=== PATIENT | male | born 1940 | race Caucasian/White ===

== ENCOUNTER 2019-08-10 10:05 | Outpatient (CLI) | payer MEDICARE, SELFPAY ==
--- NOTE | 2019-08-13 12:51 | WPDHOLTEREM ---
Holter/Event Monitor Holter/Event Monitor Date of procedure: 08/10/19 Procedure Type: 48 hour holter monitor Indications: Lightheadedness Conclusion: 1. 48 hour holter monitor on 08/10/19. 2. Predominant rhythm is sinus rhythm. HR range 28-113 bpm; average HR 57 bpm. 3. There are 2,206 premature supraventricular complexes, 48 supraventricular couplets, 10 supraventricular bigeminy and 42 supraventricular trigeminy. There are 14 episodes of atrial flutter/tachycardia, fastest at 122 bpm and longest lasting 6 beats. 4. There are 66 premature ventricular complexes, 1 ventricular couplet. There is one ventricular tachycardia at 162 bpm lasting 6 beats. 5. Underlying first degree AV block. The longest pause is 2.6 seconds at 04:30. 6. No symptoms availabe for correlation.
== END 2019-08-10 10:06 | disposition home or self-care (01) ==
PROVIDERS: PCP Registered Nurse; Visit Provider Registered Nurse
DX: R42 Dizziness and giddiness (principal)
CPT/HCPCS: 93225; 93226

== ENCOUNTER 2020-04-24 09:56 | Inpatient (IN) | payer MEDICARE, SELFPAY ==
[2020-04-24] VITALS (9 sets, daily range): BP systolic 100–154; BP diastolic 72–95; PULSE 67–105; RESP 13–19; TEMP 36.1–36.5; O2SAT 95–98; BMI 26.6; BMI 27.1
--- NOTE | ~2020-04-24 | CT_ITS ---
EXAMINATION: CT brain wo con EXAM DATE: 04/24/2020 11:22 INDICATION: Multiple falls. TECHNIQUE: Spiral CT of the head was performed without contrast. Axial, coronal and sagittal images were reviewed. The dose-length product (DLP) for this examination was 681.00 mGy-cm. The exposure w as tailored according to patient size, and iterative reconstruction (ASIR) was used as additional dos e reduction technique. There is no prior study for comparison. FINDINGS: There is no acute intraparenchymal hemorrhage. No evidence of intraparenchymal brain mass lesion. There is hypodense 1 x 2 cm region in the left occipital lobe which is suspicious for an acut e infarction. There is moderate periventricular and subcortical hypodensity, nonspecific but probably related to small vessel ischemic disease. There is moderate prominence of the sulci and ventricles related to cerebral atrophy. There is intracranial carotid arteriosclerosis. There are no extra-a xial collections. There is no mass effect or midline shift. Patient has had bilateral ocular lens s urgery. Soft tissue is unremarkable. Mild to moderate maxillary and ethmoid mucoperiosteal thickeni ng. No sinus air-fluid levels. Evidence of remote right superior orbital rim and frontal fractures. M astoid air cells are well aerated. IMPRESSION: 1. Left occipital lobe infarction, could be acute. 2. Chronic age related findings. Reviewed, dictated and finalized at location B. ACY ATTORNEY
--- NOTE | ~2020-04-24 | US_ITS ---
EXAMINATION: US carotid duplex BI DATE: 04/24/2020 17:12 INDICATION: Left occipital lobe infarct. TECHNIQUE: Grayscale, color Doppler, and pulsed Doppler images of the cervical carotid arteries were obtained. The degree of vessel stenosis is placed in one of the following categories: normal, <50%, 5 0-69%, >=70% but less than near-occlusion, near-occlusion, or total occlusion. Note that percent sten osis relative to normal distal artery lumen diameter is indirectly measured from velocity measurement s as described by Jack, et al. Radiology 2003; 229:[id number]. COMPARISON: None. FINDINGS: RIGHT: The right common carotid artery (CCA) peak systolic velocity (PSV) is 42 cm/s. The right internal car otid artery (ICA) PSV is 63 cm/s. The right ICA end-diastolic velocity (EDV) is 16 cm/s. The right IC A/CCA PSV ratio is 1.2. Grayscale and color Doppler images yield an estimate of <50% diameter reducti on from plaque in the ICA. There is antegrade flow in the right vertebral artery. LEFT: The left CCA PSV is 38 cm/s. The left ICA PSV is 54 cm/s. The left ICA EDV is 12 cm/s. The left ICA/C CA PSV ratio is 1.5. Grayscale and color Doppler images yield an estimate of <50% diameter reduction from plaque in the ICA. There is antegrade flow in the left vertebral artery. IMPRESSION: 1. <50% stenosis in the right internal carotid artery. 2. <50% stenosis in the left internal carotid artery. Reviewed, dictated and finalized at location A. LEGAL
--- NOTE | ~2020-04-24 | XR_ITS ---
EXAMINATION: XR chest 1V portable EXAM DATE: 04/24/2020 11:51 INDICATION: Shortness of breath. Stroke. TECHNIQUE: Portable AP frontal chest x-ray was obtained. Comparison is made to prior examination from 09/20/2018. FINDINGS: Interval placement of dual lead pacemaker/AICD device. There are calcified pleural plaques. No definite superimposed acute airspace disease. Cardiomediastinal silhouette is normal. There is no pneumothorax suspected. There are no pleural effusions. There are bony degenerative changes. Left sh oulder rotator cuff repair anchors. IMPRESSION: 1. 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 2. No definite superimposed acute findings. Reviewed, dictated and finalized at location B. TRIMMER
[2020-04-24 11:53] LABS: Basophils Percent Auto 0.3 % (0.2-1.2); Eosinophils Absolute Auto 0.5 K/mm3 (0-0.3); Eosinophils Percent Auto 7.5 % (0-4.4); Hematocrit 42.7 % (42.0-52.0); Hemoglobin 14.4 g/dL (14.0-18.0); Immature Granulocyte Absolute 0.01 K/mm3 (0.00-0.031); Immature Granulocyte Percent A 0.2 % (0-0.5); Lymphocytes Absolute Auto 1.33 K/mm3 (0.9-3.2); Lymphocytes Percent Auto 20.4 % (18.3-44.2); Mean Corpuscular HGB Conc 33.7 g/dl (32-36); Mean Corpuscular Hemoglobin 29.9 pg (26-34); Mean Corpuscular Volume 88.6 fl (80-100); Mean Platelet Volume 9.6 fl (7.4-10.4); Monocytes Absolute Auto 0.5 K/mm3 (0.1-0.6); Neutrophils Absolute Auto 4.2 K/mm3 (1.3-6.7); Neutrophils Percent Auto 63.6 % (45.5-73.1); Platelet Count Result 266 k/mm3 (150-375); Red Blood Count 4.82 M/mm3 (4.6-6.20); Red Cell Distribution Width 14.6 % (11.5-14.5); White Blood Count 6.5 K/mm3 (4.5-10.0)
[2020-04-24 12:03] LABS: INR 2.1; Prothrombin Time 23.8 Seconds (11.1-14.7)
[2020-04-24 12:04] LABS: Partial Thromboplastin Time 37.8 SECONDS (22.3-36.8)
[2020-04-24 12:17] LABS: Anion Gap 4 mmol/L (8-16); Blood Urea Nitrogen 14 mg/dL (9-20); Calcium 8.9 mg/dL (8.4-10.2); Carbon Dioxide 28 mmol/L (22-30); Chloride 106 mmol/L (98-107); Estimated CRCL calculation 56 ml/min; Estimated Glomerular Filt Rate > 60; Glucose 94 mg/dL (75-110); Potassium 4.1 mmol/L (3.4-5.0); Sodium 138 mmol/L (137-145)
[2020-04-24 12:27] LABS: Add Urine Microscopic? NO; Appearance Urine Clear (Clear); Bilirubin Urine Negative (Negative); Blood Urine Negative (Negative); Color Urine Straw (Yellow); Glucose Urine UA Negative (Negative); Ketones Urine Negative (Negative); Leukocyte Esterase Ur Negative LEU/UL (Negative); Nitrate Urine Negative (Negative); Protein Urine Negative (Negative); Specific Grav Ur 1.012 (1.001-1.035); Urobilinogen Urine Negative mg/dL (<2.0)
--- NOTE | 2020-04-24 12:28 | ED.GENADULT ---
HPI - General Adult General Chief complaint: Fall Stated complaint: Falls, SOB Time Seen by Provider: 04/24/20 11:15 History of Present Illness HPI narrative: Patient is a 79-year-old male who presents to the ER with concerns of head injury. Patient has had increasing number of falls over the last couple months since having Covid. Patient is anticoagulated with Coumadin. He has dementia and Parkinson's as well. is currently attempting to have him placed a [place]. Yesterday morning patient had blood running down the front of his face and his chest. No discernible injury could be visualized. Patient then was more sleepy throughout the day and less responsive. Home health nurse recommended he come in for evaluation today. Related Data Home Medications Medication Instructions Recorded Confirmed memantine 10 mg tablet 10 mg PO BID 03/12/19 sertraline 25 mg tablet 25 mg PO DAILY 03/12/19 Allergies Allergy/AdvReac Type Severity Reaction Status Date / Time morphine Allergy Mild unknown Verified 04/24/20 12:47 Review of Systems Review of Systems: ROS unobtainable: Yes unobtainable due to mental status (Dementia) [facility] Past Medical History Medical History (Updated 04/24/20 @ 14:07 by Nabeel Sommers MD) Accelerated hypertension Alcohol abuse Alzheimer's dementia without behavioral disturbance Chest pain Chronic insomnia Coronary atherosclerosis Dementia Lumbar spondylosis MDD (major depressive disorder), recurrent episode, moderate Parkinsonian syndrome Restless legs syndrome Surgical History Surgical History (Updated 03/14/19 @ 19:42 by Jamee Cyr MD) History of back surgery History of cataract surgery Hx of cardiac catheterization Family History Family History (Updated 05/21/18 @ 14:42 by DOCTOR UNKNOWN) Sibling Family history of tuberculosis Family history of hepatitis Patient's brother is Carcinoma of colon Patient's sister is Mother Cerebrovascular accident, Onset Age: 82 Family history of dementia Patient's mother is , Onset Age: 82 Father Family history of malignant neoplasm of brain, Onset Age: 62 Patient's father is , Onset Age: 62 Social History Social History (Updated 04/02/19 @ 13:34 by Jessica James) Social History: Smoking status: Never smoker Second hand tobacco smoke exposure: No Alcohol intake: current Drinks per week: 4 Substance use: never Substance use type: does not use Gender identity (if verbalized by the patient): Male Exam Narrative: Exam Narrative: GENERAL: Well-appearing, well-nourished, and in no acute distress. HEAD: Normocephalic, atraumatic. CHEST: Clear to auscultation. No respiratory distress. HEART: Irregular regular rate and rhythm.. Normal peripheral pulses. ABDOMEN: Soft, nontender, nondistended. EXTREMITIES: Normal range of motion. 1+ edema. SKIN: Warm, dry, no rash. NEURO: Cranial nerves II through XII intact. No upper or lower extremity drift. Alert and oriented x2. PSYCH: Normal mood and affect. Course Course Emergency Course: Informed patient/family of results. Admit to hospitalist service. Vital Signs Vital signs: Vital Signs Temperature 97.7 F 04/24/20 10:00 Pulse Rate 104 H 04/24/20 10:00 Respiratory Rate 18 04/24/20 10:00 Blood Pressure 100/74 04/24/20 10:00 Pulse Oximetry 95 04/24/20 10:00 Temperature 97.7 F 04/24/20 10:00 Pulse Rate 69 04/24/20 13:58 Respiratory Rate 13 04/24/20 13:58 Blood Pressure 106/77 04/24/20 13:58 Pulse Oximetry 98 04/24/20 13:58 Medical Decision Making Vital Signs Vital Signs: Vital Signs Temperature 97.7 F 04/24/20 10:00 Pulse Rate 104 H 04/24/20 10:00 Respiratory Rate 18 04/24/20 10:00 Blood Pressure 100/74 04/24/20 10:00 Pulse Oximetry 95 04/24/20 10:00 Temperature 97.7 F 04/24/20 10:00 Pulse
[2020-04-24 12:29] LABS: Troponin I 0.017 ng/mL (0.000-0.034)
[2020-04-24] MEDS: LORazepam INJ (*CRX) 2 MG/ML VIAL 0.5 MG IV PUSH (12:55)
--- NOTE | 2020-04-24 13:02 | PC.NURSE ---
lunch tray ordered for pt as this time
--- NOTE | 2020-04-24 14:15 | ADMGEN ---
This patient, Pierce Gonzalez, was admitted to Medical Room 343-01. Patient/family oriented to hospital policies and general routines including ID bracelet, bed and alarms, visiting hours, pain management, procedures, bathroom and other care routines, personal items, smoking policy, room service/diet, and visiting hours. Information on how to activate the Rapid Response Team has been discussed. Patient/Family are encouraged to report perceived risks to care and to ask questions if they do not understand what they are told or what they should do.
--- NOTE | 2020-04-24 20:00 | PM.IMHP ---
H&P: HPI History of Present Illness Date/Time: 04/24/20 20:00 Chief Complaint: Multiple falls. Narrative: This is a 79-year-old male with dementia, parkinsonian syndrome, coronary artery disease, hypertension, and several other comorbidities who presented to the emergency department earlier today from home for evaluation after multiple falls. Due to his dementia he is not able to provide an accurate history and as such all of the following is obtained via a review of his electronic medical records and reports from his . His has been struggling at home due to the patient's dementia. It is my understanding and he has of wandering in the middle of the night, urinates wherever he wants to in the home, and is at times irritable. She has been trying to get him placed at [facility] but has been unsuccessful as of this time. Home health was there to visit today and they felt it would be best for the patient to come in for evaluation after he apparently fell this morning although there was no mention of injury. At the time my evaluation the patient is sitting up in the bed and is confused, thinking he is in line for something at work, but he is easily reoriented. He is not aware that he is in the hospital and cannot tell me under what circumstances he thought he may be here in the hospital. He has no current complaints aside from the fact that he wants to get out of bed. Review of Systems Review of Systems: Narrative: Twelve systems were reviewed. Given his significant dementia he is not a very reliable historian. At this time he does specifically deny headache, vertigo, auditory and visual changes, focal weakness, paresthesias, chest pain, shortness of breath, nausea, vomiting, diarrhea, and dysuria. Except as documented, all other systems were reviewed and are negative. [facility] Past Medical History Medical History (Updated 04/25/20 @ 00:08 by Concetta Foote PA-C) Accelerated hypertension Alcohol abuse Previous history of such. Alzheimer's dementia without behavioral disturbance Benign prostatic hyperplasia Chest pain Chronic insomnia Coronary atherosclerosis Current use of longterm anticoagulation Dementia Essential hypertension Lumbar spondylosis MDD (major depressive disorder), recurrent episode, moderate Obstructive sleep apnea Does not use CPAP. Parkinsonian syndrome Paroxysmal atrial fibrillation Restless legs syndrome Spinal stenosis Surgical History Surgical History (Updated 04/25/20 @ 00:08 by Concetta Foote PA-C) History of bilateral cataract extraction History of cardiac pacemaker History of cataract surgery History of laparoscopic cholecystectomy History of lumbar fusion History of repair of rotator cuff Bilateral. History of total right knee replacement History of transurethral resection of prostate History of umbilical hernia repair Hx of cardiac catheterization Family History Family History Sibling Family history of tuberculosis Family history of hepatitis Patient's brother is Carcinoma of colon Patient's sister is Mother Cerebrovascular accident, Onset Age: 82 Family history of dementia Patient's mother is , Onset Age: 82 Father Family history of malignant neoplasm of brain, Onset Age: 62 Patient's father is , Onset Age: 62 Social History Social History (Updated 04/25/20 @ 00:03 by Concetta Foote PA-C) Social History: Surrogate decision maker: Dora Gonzalez, . Code status: Full code. Smoking status: Never smoker Second hand tobacco smoke exposure: No Alcohol intake: former Substance use: never Substance use type: does not use Additional living arrangements comments: Resides in [place] with his . 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 Gender identity (if verbalized by the
[2020-04-25] VITALS (7 sets, daily range): BP systolic 111–169; BP diastolic 87–98; PULSE 78–112; RESP 16–18; TEMP 35.7–36.7; O2SAT 95–97
[2020-04-25] MEDS: traZODone HCL 50 MG TABLET 100 MG PO ×2 (01:28→21:21)
[2020-04-25] MEDS: rOPINIRole HCL 1 MG TABLET 2 MG PO ×4 (01:28→17:23)
--- NOTE | 2020-04-25 03:49 | PC.NURSE ---
PT pulled out his IV, Concetta Foote notified about PTs current behavior and staff unable to place new IV. She okayed IV staying out.
[2020-04-25 06:06] LABS: INR 1.4; Prothrombin Time 18.1 Seconds (11.1-14.7)
[2020-04-25] MEDS: dilTIAZem HCL CD 180 MG CAP.ER.24H PO (10:42)
[2020-04-25] MEDS: DOXAZOSIN MESYLATE 4 MG TABLET PO (10:42)
[2020-04-25] MEDS: hydroCHLOROthiazide 12.5 MG CAPSULE PO (10:43)
[2020-04-25] MEDS: SERTRALINE HCL 25 MG TABLET PO (10:43)
[2020-04-25] MEDS: MELOXICAM 7.5 MG TABLET PO (10:43)
--- NOTE | 2020-04-25 14:02 | PC.NURSE ---
Reviewed documentation for student nurse Clyde Barragan Today [phone]
--- NOTE | 2020-04-25 15:30 | PM.IMPN ---
Progress Note: A&P Assessment and Plan (1) Multiple falls: Code(s): R29.6 - Repeated falls Status: Acute Assessment and Plan: Secondary to parkinsonism progression, CVA could also be contributing. PT/OT, dispo is SNF. Awaiting COVID testing for discharge. (2) Cerebrovascular accident: Code(s): I63.9 - Cerebral infarction, unspecified Status: Acute Assessment and Plan: Chronic vs. acute, unclear based on imaging. CT brain shows left occipital lobe infarction. Do not feel patient would tolerate or benefit from MRI brain today. agrees. (3) Paroxysmal atrial fibrillation: Code(s): I48.0 - Paroxysmal atrial fibrillation Status: Chronic Assessment and Plan: Rate controlled on home diltiazem. (4) Current use of superintendent terminal anticoagulation: Code(s): Z79.01 - long term care administrator (current) use of anticoagulants Status: Chronic Assessment and Plan: Home warfarin stopped due to falls and bleeding risk. is agreeable to this and mentioned this was going to be discussed with patient's boom operator soon. (5) Dementia: Code(s): F03.90 - Unspecified dementia without behavioral disturbance Status: Chronic Assessment and Plan: Patient with history of Lewy Body dementia with parkinsonism follows with Dr Alexey Russ. With behavioral disturbance, becoming agitated today. Will attempt trial of seroquel this evening. According to Dr Haddad's most recent note from last month, appears he had plans to try Seroquel soon. Monitor. (6) Essential hypertension: Code(s): I10 - Essential (primary) hypertension Status: Chronic Assessment and Plan: BP a bit elevated may be related to agitation. Maintained on his home antihypertensive regimen. Monitor BP and adjust treatment as needed. (7) Parkinsonian syndrome: Code(s): G20 - Parkinson's disease Status: Chronic Assessment and Plan: Worsening. notes his movement disorder becoming progressively worse since he had COVID early February 2020. See above. Followed by Dr Alexey Haddad in [facility]. (8) Benign prostatic hyperplasia: Code(s): N40.0 - Benign prostatic hyperplasia without lower urinary tract symptoms Status: Chronic Assessment and Plan: No acute issues. Subjective Date/time seen: 04/25/20 1400 Interval history: Mr. Gonzalez is a 79yo M with dementia who presents with worsening confusion and multiple falls at home. His has been having increasing difficulty caring for him at home and has been working on trying to get him placed in a care facility. He is resting comfortably at this time after having been agitated much of this morning. Review of systems not obtained however at the bedside describes he sometimes complains of chronic back pain, otherwise no complaints today. Review of Systems Review of Systems: ROS unobtainable: Yes unobtainable due to mental status Exam Narrative: Exam Narrative: General: Well-developed male resting supine in bed in no acute distress. Resting comfortably, then attempts to get out of bed a couple times, then goes back to resting comfortably. HEENT: Normocephalic, EOMI, oral mucosa tacky. Cardiovascular: Rate and rhythm are regular. Respiratory: Lungs clear to auscultation bilaterally. Respirations even and non-labored. Abdomen: Soft, non-tender, non-distended, bowel sounds present. Extremities: Peripheral pulses intact. No edema. Neuro: He is confused and disoriented due to dementia. Oriented only to self. Not able to follow simple commands at this time. Objectiv
[2020-04-25] MEDS: QUEtiapine FUMARATE 25 MG TABLET PO (17:23)
[2020-04-26 05:30] VITALS: BP 146/88; PULSE 55; RESP 16; TEMP 36.6; O2SAT 96
[2020-04-26] MEDS: MELOXICAM 7.5 MG TABLET PO (08:33)
[2020-04-26] MEDS: SERTRALINE HCL 25 MG TABLET PO (08:33)
[2020-04-26] MEDS: dilTIAZem HCL CD 180 MG CAP.ER.24H PO (08:33)
[2020-04-26] MEDS: rOPINIRole HCL 1 MG TABLET 2 MG PO ×3 (08:33→17:46)
[2020-04-26] MEDS: DOXAZOSIN MESYLATE 4 MG TABLET PO (08:33)
[2020-04-26] MEDS: hydroCHLOROthiazide 12.5 MG CAPSULE PO (08:33)
--- NOTE | 2020-04-26 09:19 | PM.IMPN ---
Progress Note: A&P Assessment and Plan (1) Multiple falls: Code(s): R29.6 - Repeated falls Status: Acute Assessment and Plan: Suspect secondary to parkinsonism progression, CVA could also be contributing. PT/OT, dispo is SNF. Awaiting COVID testing for discharge. 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 Chronic vs. acute, unclear based on imaging. Discussed with patient's that it is not felt the patient would tolerate or benefit from MRI brain; agrees. (3) Paroxysmal atrial fibrillation: Code(s): I48.0 - Paroxysmal atrial fibrillation Status: Chronic Assessment and Plan: Rate controlled on home diltiazem. (4) Current use of long term care administrator anticoagulation: Code(s): Z79.01 - buttermaker continuous churn (current) use of anticoagulants Status: Chronic Assessment and Plan: Home warfarin stopped due to falls and bleeding risk. is agreeable to this and mentioned this was going to be discussed with patient's straight truck driver at next appointment. (5) Dementia: Code(s): F03.90 - Unspecified dementia without behavioral disturbance Status: Chronic Assessment and Plan: Patient with history of Lewy Body dementia with parkinsonism follows with Dr Alexey Haddad at [facility]. With behavioral disturbance, becoming agitated yesterday. It seems he has done well overnight after his first dose of Seroquel. According to Dr Haddad's most recent note from last month, appears he had plans to try Seroquel soon. Monitor. (6) Essential hypertension: Code(s): I10 - Essential (primary) hypertension Status: Chronic Assessment and Plan: BPs variable, last 146/88. Maintained on his home antihypertensive regimen. Monitor BP and adjust treatment as needed. (7) Parkinsonian syndrome: Code(s): G20 - Parkinson's disease Status: Chronic Assessment and Plan: Worsening. notes his movement disorder becoming progressively worse since he had COVID early February 2020. See above. Followed by Dr Alexey Haddad in [facility]. (8) Benign prostatic hyperplasia: Code(s): N40.0 - Benign prostatic hyperplasia without lower urinary tract symptoms Status: Chronic Assessment and Plan: No acute issues. Subjective Date/time seen: 04/26/20 09:15 Interval history: Mr. Gonzalez is a 79yo M with dementia who presents with worsening confusion and multiple falls at home. His has been having increasing difficulty caring for him at home and has been working on trying to get him placed in a care facility. He is awake and resting comfortably at this time. He reports pain to his butt/lower back which is chronic for him but otherwise offers no complaints. He denies chest pain, shortness of breath, nausea or vomiting. He tells me he ate some breakfast but I will check with nursing. Review of Systems Review of Systems: Narrative: Twelve systems were reviewed with pertinent positives and negatives as per HPI. Except as documented, all other systems were reviewed and are negative. Exam Narrative: Exam Narrative: General: Well-developed male resting supine in bed in no acute distress. He is calm and resting comfortably. HEENT: Normocephalic, EOMI, oral mucosa moist. Cardiovascular: Rate is normal, rhythm irregular. Respiratory: Lungs clear to auscultation bilaterally. Respirations even and non-labored. Abdomen: Soft, non-tender, non-distended, bowel sounds present. Extremities: Peripheral p
[2020-04-26 10:17] VITALS: O2SAT 95
[2020-04-26] MEDS: QUEtiapine FUMARATE 25 MG TABLET PO (13:41)
--- NOTE | 2020-04-26 13:47 | PC.NURSE ---
Patient has continued to become violent with staff and who is in the room. I made a phone call to MONICA Lebron to discuss options that would help him calm down. Vi stated to give him his seroquel early today. Will need to consider something prn for this patient as he continues to become violent and physical with staff. Patient refuses to stay in bed and can easily climb over bed railings. It is becoming a safety issue for us and the patient as well.
--- NOTE | 2020-04-26 13:57 | PCPTNOTE ---
The PT treatment was unable to be completed today due to patient refusal. RN reports patient has been more aggressive today. Will continue per Plan of Care frequency and duration.
[2020-04-26 14:00] VITALS: BP 119/68; PULSE 73; RESP 16; TEMP 36.3; O2SAT 100
--- NOTE | 2020-04-26 14:27 | PC.NURSE ---
Multiple attempts to educate patient on importance of staying in bed and cooperating with staff so we can keep her safe. Patient unable to comprehend and continues to become violent and uncooperative.
[2020-04-26 19:42] VITALS: BP 122/82; PULSE 92; RESP 18; TEMP 36.6; O2SAT 94
[2020-04-26] MEDS: traZODone HCL 50 MG TABLET 100 MG PO (20:25)
[2020-04-26 20:42] LABS: SARS-CoV-2 RNA PCR Negative
[2020-04-27 04:16] VITALS: BP 108/56; PULSE 91; RESP 16; TEMP 36.3; O2SAT 99
[2020-04-27] MEDS: MELOXICAM 7.5 MG TABLET PO (07:54)
[2020-04-27] MEDS: hydroCHLOROthiazide 12.5 MG CAPSULE PO (07:54)
[2020-04-27] MEDS: rOPINIRole HCL 1 MG TABLET 2 MG PO ×2 (07:55→13:49)
[2020-04-27] MEDS: DOXAZOSIN MESYLATE 4 MG TABLET PO (07:55)
[2020-04-27] MEDS: dilTIAZem HCL CD 180 MG CAP.ER.24H PO (07:55)
[2020-04-27] MEDS: SERTRALINE HCL 25 MG TABLET PO (07:55)
[2020-04-27 08:00] VITALS: PULSE 91; RESP 16; O2SAT 99
[2020-04-27] MEDS: LORazepam (*CRX) 0.5 MG TABLET PO (11:05)
--- NOTE | 2020-04-27 13:07 | PM.DS ---
DS: Admitting Diagnosis Admitting Diagnosis Admitting Diagnosis: Falls DS: Discharge Diagnosis Discharge Diagnosis (1) Multiple falls: Code(s): R29.6 - Repeated falls Status: Acute Assessment and Plan: Date of Admission 04/24/20 Date of Discharge/DOS 04/27/20 Mr. Gonzalez is a 79yo M with progressive Forrest Body dementia, paroxysmal atrial fibrillation on long-term anticoagulation with warfarin, hypertension and BPH who presented to the ED for evaluation of multiple falls. His has had increased difficulty caring for Hardik at home and has been attempting to get him into a care facility due to multiple falls and increasing confusion at home. CT brain demonstrated a left occipital lobe infarction, unclear if subacute vs. acute. Due to patient's confusion and agitation it was felt he would not tolerate MRI at this time. Patient's agrees to no MRI. His long-term anticoagulation with warfarin was discontinued due to several falls. He [place] with Dr [place] his dementia and Parkinsonism. Due to agitation he was started on Seroquel, I have notified Dr Haddad's office of same. Case management arranged placement at SNF for Hardik and he was hemodynamically stable for discharge to SNF 04/27/20. Suspect secondary to parkinsonism progression, CVA could also be contributing. PT/OT, dispo is SNF. 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 Chronic vs. acute, unclear based on imaging. Discussed with patient's that it is not felt the patient would tolerate or benefit from MRI brain at this time; agrees. (3) Paroxysmal atrial fibrillation: Code(s): I48.0 - Paroxysmal atrial fibrillation Status: Chronic Assessment and Plan: Rate controlled on home diltiazem. (4) Current use of usp anticoagulation: Code(s): Z79.01 - FPC (current) use of anticoagulants Status: Chronic Assessment and Plan: Home warfarin stopped due to falls and bleeding risk. is agreeable to this and mentioned this was going to be discussed with patient's garden equipment mechanic at next appointment. (5) Dementia: Code(s): F03.90 - Unspecified dementia without behavioral disturbance Status: Chronic Assessment and Plan: Patient with history of Lewy Body dementia with parkinsonism follows with Dr Alexey Haddad at [facility]. With behavioral disturbance, becoming agitated. It seems he has done well overnight after his first dose of Seroquel. According to Dr Haddad's most recent note from last month, appears he had plans to try Seroquel soon. Monitor. (6) Essential hypertension: Code(s): I10 - Essential (primary) hypertension Status: Chronic Assessment and Plan: BPs variable on his home antihypertensive regimen. (7) Parkinsonian syndrome: Code(s): G20 - Parkinson's disease Status: Chronic Assessment and Plan: Worsening. notes his movement disorder becoming progressively worse since he had COVID early February 2020. See above. Followed by Dr Alexey Haddad in [facility]. (8) Benign prostatic hyperplasia: Code(s): N40.0 - Benign prostatic hyperplasia without lower urinary tract symptoms Status: Chronic Assessment and Plan: No acute issues. DS: Summary Hospital Course Hospital Course: See above. Time Spent with Patient Time attestation: Total time spent providing and/or coordinating discharge services: 40 minutes Ex
[2020-04-27 14:29] VITALS: BP 104/62; PULSE 82; RESP 16; TEMP 35.9; O2SAT 98
[2020-04-27] MEDS: QUEtiapine FUMARATE 25 MG TABLET PO (15:56)
[2020-04-27] MEDS: ACETAMINOPHEN 325 MG TABLET 650 MG PO (16:14)
== END 2020-04-27 16:45 | DRG 65 ==
LOC: ANHED 11:15 → ANH3MED 14:07
PROVIDERS: Physician Assistant; Admitting Provider Internal Medicine; Emergency Provider Emergency Medicine; PCP Registered Nurse; Visit Provider Physician Assistant
DX: I63.9 Cerebral infarction, unspecified (principal); F02.81 Dementia in other diseases classified elsewhere, unspecified severity, with behavioral disturbance; G30.9 Alzheimer's disease, unspecified; G20 Parkinson's disease; R29.6 Repeated falls; Z20.822 Contact with and (suspected) exposure to COVID-19; I25.10 Atherosclerotic heart disease of native coronary artery without angina pectoris; I48.0 Paroxysmal atrial fibrillation; I10 Essential (primary) hypertension; G47.33 Obstructive sleep apnea (adult) (pediatric); N40.0 Benign prostatic hyperplasia without lower urinary tract symptoms; Z79.899 Other long term (current) drug therapy; Z86.16 Personal history of COVID-19; Z95.0 Presence of cardiac pacemaker; Z98.42 Cataract extraction status, left eye; Z98.41 Cataract extraction status, right eye
CPT/HCPCS: 36415; 70450; 71045; 80048; 81003; 84484; 85025; 85610; 85730; 93880; 96374; 97110; 97161; 97166; 99285; A9270; C9803; J2060; U0003; U0005

== ENCOUNTER 2020-05-08 15:41 | Emergency (ER) | payer MEDICARE, SELFPAY ==
[2020-05-08 15:45] VITALS: BP 108/58; PULSE 79; RESP 18; TEMP 36.6; O2SAT 99
--- NOTE | 2020-05-08 15:45 | ECG_ITS ---
Measurements Intervals Dewitt Rate: 71 P: 49 SC: 209 QRS: 175 QRSD: 90 T: 169 QT: 429 QTc: 466 Interpretive Statements ELECTRONIC ATRIAL PACEMAKER WITH INHIBITION LIMB LEAD REVERSAL FREQUENT ATRIAL PREMATURE COMPLEXES BASELINE ARTIFACT- I, II, III, AVR, AVL, AVF ABNORMAL ECG Electronically Signed On 05-09-2020 7:29:10 TOWN MANAGER by Sudhakar Coles D.O.
--- NOTE | 2020-05-08 15:46 | ED.GENADULT ---
HPI - General Adult General Chief complaint: Psychiatric Symptoms <Xena Doshi MD - Last Filed: 05/09/20 07:15> Stated complaint: VIOLENT OUTBURSTS <Xena Doshi MD - Last Filed: 05/09/20 07:15> Time Seen by Provider: 05/08/20 19:56 <Xena Doshi MD - Last Filed: 05/09/20 07:15> Source: patient <Xena Doshi MD - Last Filed: 05/09/20 07:15> History of Present Illness HPI narrative: Patient is a 79 y/o male sent from [place] for violent outbursts. Patient states that he feel fine. He has no complaints. He does not know why he is here. He is poor historian. <Xena Doshi MD - Last Filed: 05/09/20 07:15> Related Data Home medications: Home Medications Medication Instructions Recorded Confirmed sertraline 25 mg tablet 25 mg PO DAILY 03/12/19 04/24/20 hydrochlorothiazide 12.5 mg PO DAILY 04/24/20 04/24/20 trazodone 100 mg PO .QHS 04/24/20 04/24/20 <Xena Doshi MD - Last Filed: 05/09/20 07:15> Allergies/adverse reactions: Allergies Allergy/AdvReac Type Severity Reaction Status Date / Time morphine Allergy Mild unknown Verified 04/24/20 15:17 <Xena Doshi MD - Last Filed: 05/09/20 07:15> Review of Systems Review of Systems: ROS unobtainable: Yes unobtainable due to mental status <Xena Doshi MD - Last Filed: 05/09/20 07:15> [facility] Past Medical History Medical History: Medical History Accelerated hypertension Alcohol abuse Previous history of such. Alzheimer's dementia without behavioral disturbance Benign prostatic hyperplasia Chest pain Chronic insomnia Coronary atherosclerosis Current use of fdc anticoagulation Dementia Essential hypertension Lumbar spondylosis MDD (major depressive disorder), recurrent episode, moderate Obstructive sleep apnea Does not use CPAP. Parkinsonian syndrome Paroxysmal atrial fibrillation Restless legs syndrome Spinal stenosis <Xena Doshi MD - Last Filed: 05/09/20 07:15> Surgical History Surgical History: Surgical History History of bilateral cataract extraction History of cardiac pacemaker History of cataract surgery History of laparoscopic cholecystectomy History of lumbar fusion History of repair of rotator cuff Bilateral. History of total right knee replacement History of transurethral resection of prostate History of umbilical hernia repair Hx of cardiac catheterization <Xena Doshi MD - Last Filed: 05/09/20 07:15> Family History Family History: Family History Sibling Family history of tuberculosis Family history of hepatitis Patient's brother is Carcinoma of colon Patient's sister is Mother Cerebrovascular accident, Onset Age: 82 Family history of dementia Patient's mother is , Onset Age: 82 Father Family history of malignant neoplasm of brain, Onset Age: 62 Patient's father is , Onset Age: 62 <Xena Doshi MD - Last Filed: 05/09/20 07:15> Social History Social History: Social History Social History: Surrogate decision maker: Dora Gonzalez, . Code status: Full code. Smoking status: Never smoker Second hand tobacco smoke exposure: No Alcohol intake: former Substance use: never Substance use type: does not use Additional living arrangements comments: Resides in [place] with his . 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 Gender identity (if verbalized by the patient): Male Spiritual care concerns: No <Xena Doshi MD - Last Filed: 05/09/20 07:15> Exam Const: General: no acute distress and well developed <Xena Doshi MD - Last Filed: 05/09/20 07:15> Orientation/consciousness: oriented to person <L
[2020-05-08 16:43] LABS: Basophils Percent Auto 0.4 % (0.2-1.2); Eosinophils Absolute Auto 0.3 K/mm3 (0-0.3); Eosinophils Percent Auto 4.6 % (0-4.4); Hematocrit 42.7 % (42.0-52.0); Hemoglobin 14.4 g/dL (14.0-18.0); Immature Granulocyte Absolute 0.02 K/mm3 (0.00-0.031); Immature Granulocyte Percent A 0.3 % (0-0.5); Lymphocytes Absolute Auto 1.71 K/mm3 (0.9-3.2); Lymphocytes Percent Auto 25.5 % (18.3-44.2); Mean Corpuscular HGB Conc 33.7 g/dl (32-36); Mean Corpuscular Hemoglobin 30.3 pg (26-34); Mean Corpuscular Volume 89.7 fl (80-100); Mean Platelet Volume 10.2 fl (7.4-10.4); Monocytes Absolute Auto 0.5 K/mm3 (0.1-0.6); Neutrophils Absolute Auto 4.2 K/mm3 (1.3-6.7); Neutrophils Percent Auto 62.2 % (45.5-73.1); Platelet Count Result 311 k/mm3 (150-375); Red Blood Count 4.76 M/mm3 (4.6-6.20); Red Cell Distribution Width 14.3 % (11.5-14.5); White Blood Count 6.7 K/mm3 (4.5-10.0)
[2020-05-08 16:46] LABS: Add Urine Microscopic? NO; Appearance Urine Clear (Clear); Bilirubin Urine Negative (Negative); Blood Urine Negative (Negative); Color Urine Yellow (Yellow); Glucose Urine UA Negative (Negative); Ketones Urine Negative (Negative); Leukocyte Esterase Ur Negative LEU/UL (Negative); Nitrate Urine Negative (Negative); Protein Urine Negative (Negative); Specific Grav Ur 1.023 (1.001-1.035); Urobilinogen Urine Negative mg/dL (<2.0)
[2020-05-08 16:57] LABS: Alanine Aminotransferase 40 U/L (4-50); Albumin Level 4.3 g/dL (3.5-5.1); Alkaline Phosphatase 69 U/L (38-126); Anion Gap 6 mmol/L (8-16); Aspartate Amino Transferase 44 U/L (17-59); Bilirubin,Total 1.8 mg/dL (0.2-1.3); Blood Urea Nitrogen 17 mg/dL (9-20); Calcium 9.5 mg/dL (8.4-10.2); Carbon Dioxide 33 mmol/L (22-30); Chloride 103 mmol/L (98-107); Estimated Glomerular Filt Rate > 60; Glucose 85 mg/dL (75-110); Potassium 3.5 mmol/L (3.4-5.0); Sodium 142 mmol/L (137-145)
--- NOTE | 2020-05-08 18:40 | PC.NURSE ---
spoke with patients on phone,she states that she does not want patient returned to [facility] without doing anything for him states patient was seen at [facility] yesterday and was sent back and patient acted out again. states that patient was previously treated [facility] and she would like him sent there
--- NOTE | 2020-05-08 20:50 | PC.NURSE ---
called [facility] to request transport. ETA [id number]
--- NOTE | 2020-05-08 20:52 | PC.NURSE ---
Called [facility] to request transport. Declined- no trucks available. Informed and aware that [facility] and [facility] do not have trucks available tonight.
--- NOTE | 2020-05-09 00:03 | PC.NURSE ---
Patient frequently getting out of bed and ambulating into ED hallway. Patient struggling to be redirected. EDP Tangela aware. Per EDP Tangela via verbal order read-back, give 5mg Haldol IM.
--- NOTE | 2020-05-09 00:46 | PC.NURSE ---
called [facility] for ETA update. ETA [id number]
--- NOTE | 2020-05-09 00:48 | PC.NURSE ---
called [facility] to request transport. [facility] Accepted and ETA is drive time from [facility].
[2020-05-09] MEDS: HALOPERIDOL LACTATE 5 MG/ML VIAL IM (00:50)
--- NOTE | 2020-05-09 00:50 | PC.NURSE ---
pt getting agitated, pushing rn and sitter, pt kicked sitter chair away from his door. refusing to go back into his room.
[2020-05-09 00:52] VITALS: BP 130/86; PULSE 81; RESP 20; TEMP 36.4; O2SAT 95
[2020-05-09 01:26] VITALS: PULSE 85; RESP 16; O2SAT 97
--- NOTE | 2020-05-09 01:52 | PC.NURSE ---
[facility] here. Cancelled [facility].
== END 2020-05-09 01:55 ==
PROVIDERS: Emergency Medicine; Emergency Provider Emergency Medicine; PCP Registered Nurse
DX: G30.9 Alzheimer's disease, unspecified (principal); F02.80 Dementia in other diseases classified elsewhere, unspecified severity, without behavioral disturbance, psychotic disturbance, mood disturbance, and anxiety; I10 Essential (primary) hypertension; N40.0 Benign prostatic hyperplasia without lower urinary tract symptoms; I25.10 Atherosclerotic heart disease of native coronary artery without angina pectoris; M47.816 Spondylosis without myelopathy or radiculopathy, lumbar region; G47.33 Obstructive sleep apnea (adult) (pediatric); G20 Parkinson's disease; I48.0 Paroxysmal atrial fibrillation; G25.81 Restless legs syndrome; Z98.42 Cataract extraction status, left eye; Z98.41 Cataract extraction status, right eye; Z95.0 Presence of cardiac pacemaker; Z98.1 Arthrodesis status; Z96.651 Presence of right artificial knee joint
CPT/HCPCS: 36415; 80053; 81003; 85025; 93005; 96372; 99284; J1630

== ENCOUNTER 2020-05-19 16:44 | Emergency (ER) | payer MEDICARE, SELFPAY ==
[2020-05-19 16:50] VITALS: BP 126/85; PULSE 83; RESP 17; TEMP 36.8; O2SAT 97
--- NOTE | 2020-05-19 17:20 | ED.GENADULT ---
HPI - General Adult General Chief complaint: Unspecified Stated complaint: COMBATIVE Time Seen by Provider: 05/19/20 16:50 History of Present Illness HPI narrative: Patient is a 79-year-old male who presents to the ER due to being combative at his memory care. Patient reports he got an argument with another person where he lives. He says he guesses they once since he is here. Does not report striking anybody. Reports he thinks his medication is not working. He has no additional complaints at this time. He is oriented x2. Related Data Home Medications Medication Instructions Recorded Confirmed sertraline 25 mg tablet 25 mg PO DAILY 03/12/19 04/24/20 hydrochlorothiazide 12.5 mg PO DAILY 04/24/20 04/24/20 trazodone 100 mg PO .QHS 04/24/20 04/24/20 Allergies Allergy/AdvReac Type Severity Reaction Status Date / Time morphine Allergy Mild unknown Verified 04/24/20 15:17 Review of Systems Review of Systems: ROS unobtainable: Yes other (Limited due to dementia.) [facility] Past Medical History Medical History Accelerated hypertension Alcohol abuse Previous history of such. Alzheimer's dementia without behavioral disturbance Benign prostatic hyperplasia Chest pain Chronic insomnia Coronary atherosclerosis Current use of residential anticoagulation Dementia Essential hypertension Lumbar spondylosis MDD (major depressive disorder), recurrent episode, moderate Obstructive sleep apnea Does not use CPAP. Parkinsonian syndrome Paroxysmal atrial fibrillation Restless legs syndrome Spinal stenosis Surgical History Surgical History History of bilateral cataract extraction History of cardiac pacemaker History of cataract surgery History of laparoscopic cholecystectomy History of lumbar fusion History of repair of rotator cuff Bilateral. History of total right knee replacement History of transurethral resection of prostate History of umbilical hernia repair Hx of cardiac catheterization Family History Family History Sibling Family history of tuberculosis Family history of hepatitis Patient's brother is Carcinoma of colon Patient's sister is Mother Cerebrovascular accident, Onset Age: 82 Family history of dementia Patient's mother is , Onset Age: 82 Father Family history of malignant neoplasm of brain, Onset Age: 62 Patient's father is , Onset Age: 62 Social History Social History Social History: Surrogate decision maker: Dora Gonzalez, . Code status: Full code. Smoking status: Never smoker Second hand tobacco smoke exposure: No Alcohol intake: former Substance use: never Substance use type: does not use Additional living arrangements comments: Resides in [place] with his . 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 Gender identity (if verbalized by the patient): Male Spiritual care concerns: No Exam Narrative: Exam Narrative: GENERAL: Well-appearing, well-nourished, and in no acute distress. HEAD: Normocephalic, atraumatic. EYES: PERRLA and EOMI. ENT: Mucous membranes moist. CHEST: Clear to auscultation. No respiratory distress. HEART: Regular rate and rhythm. Normal peripheral pulses. EXTREMITIES: Normal range of motion. No edema. SKIN: Warm, dry, no rash. NEURO: Alert and oriented x2. PSYCH: Normal mood and affect. Course Course Emergency Course: Clinically patient is very stable and is cooperative. No violent outbursts here. There is no indication to have him admitted to the hospital and he will be discharged back to the [facility] care. Vital Signs Vital signs: Vital Signs Temperature 98.2 F 05/19/20 16:50 Pulse Rate 83 05/19/20 16:50 Res
[2020-05-19 17:58] LABS: Basophils Percent Auto 0.3 % (0.2-1.2); Eosinophils Absolute Auto 0.3 K/mm3 (0-0.3); Eosinophils Percent Auto 3.3 % (0-4.4); Hematocrit 39.9 % (42.0-52.0); Hemoglobin 13.6 g/dL (14.0-18.0); Immature Granulocyte Absolute 0.02 K/mm3 (0.00-0.031); Immature Granulocyte Percent A 0.3 % (0-0.5); Lymphocytes Absolute Auto 1.39 K/mm3 (0.9-3.2); Lymphocytes Percent Auto 17.9 % (18.3-44.2); Mean Corpuscular HGB Conc 34.1 g/dl (32-36); Mean Corpuscular Hemoglobin 30.6 pg (26-34); Mean Corpuscular Volume 89.7 fl (80-100); Mean Platelet Volume 10.3 fl (7.4-10.4); Monocytes Absolute Auto 0.6 K/mm3 (0.1-0.6); Monocytes Percent Auto 7.2 % (2.6-8.5); Neutrophils Absolute Auto 5.5 K/mm3 (1.3-6.7); Platelet Count Result 284 k/mm3 (150-375); Red Blood Count 4.45 M/mm3 (4.6-6.20); Red Cell Distribution Width 14.2 % (11.5-14.5); White Blood Count 7.8 K/mm3 (4.5-10.0)
[2020-05-19 18:03] LABS: Add Urine Microscopic? YES; Appearance Urine Cloudy (Clear); Bilirubin Urine Negative (Negative); Blood Urine Negative (Negative); Color Urine Amber (Yellow); Glucose Urine UA Negative (Negative); Hyaline Casts Urine 30-49 /lpf; Ketones Urine Negative (Negative); Leukocyte Esterase Ur Negative LEU/UL (Negative); Mucus Urine Heavy /lpf; Nitrate Urine Negative (Negative); Protein Urine 1+ mg/dL (Negative); RBC Urine 0-2 /hpf (0-2); Specific Grav Ur 1.026 (1.001-1.035); Squamous Epithelial Cell Urine Rare /hpf (Few); Urobilinogen Urine Negative mg/dL (<2.0); WBC Urine 0-3 /hpf
[2020-05-19 18:10] LABS: Alanine Aminotransferase 34 U/L (4-50); Albumin Level 4.2 g/dL (3.5-5.1); Alkaline Phosphatase 73 U/L (38-126); Anion Gap 7 mmol/L (8-16); Aspartate Amino Transferase 50 U/L (17-59); Bilirubin,Total 1.4 mg/dL (0.2-1.3); Blood Urea Nitrogen 16 mg/dL (9-20); Carbon Dioxide 28 mmol/L (22-30); Chloride 105 mmol/L (98-107); Estimated CRCL calculation 52 ml/min; Estimated Glomerular Filt Rate > 60; Glucose 97 mg/dL (75-110); Potassium 3.4 mmol/L (3.4-5.0); Sodium 140 mmol/L (137-145)
[2020-05-19 18:48] VITALS: BP 125/80; PULSE 80; RESP 18; O2SAT 100
--- NOTE | 2020-05-19 18:55 | PC.NURSE ---
[facility] accepted return to [facility] [id number] Trip# [id number]
--- NOTE | 2020-05-19 21:00 | PC.NURSE ---
CALLED [facility] FOR STATUS...ETA [id number]
--- NOTE | 2020-05-19 21:55 | PC.NURSE ---
CALLED [facility] FOR STATUS....ETA [id number]
--- NOTE | 2020-05-19 23:04 | PC.NURSE ---
CALLED [facility] FOR STATUS....ETA [id number]
--- NOTE | 2020-05-20 00:04 | PC.NURSE ---
CALLED [facility] FOR STATUS...ETA [phone]
[2020-05-20 01:12] VITALS: BP 126/85; PULSE 83; RESP 17; O2SAT 97
== END 2020-05-20 01:13 ==
PROVIDERS: Emergency Provider Emergency Medicine; PCP Registered Nurse
DX: R45.1 Restlessness and agitation (principal); G30.9 Alzheimer's disease, unspecified; F02.81 Dementia in other diseases classified elsewhere, unspecified severity, with behavioral disturbance; I10 Essential (primary) hypertension; N40.0 Benign prostatic hyperplasia without lower urinary tract symptoms; I25.10 Atherosclerotic heart disease of native coronary artery without angina pectoris; G47.33 Obstructive sleep apnea (adult) (pediatric); G20 Parkinson's disease; I48.0 Paroxysmal atrial fibrillation; Z95.0 Presence of cardiac pacemaker; Z98.49 Cataract extraction status, unspecified eye; Z98.1 Arthrodesis status; Z96.651 Presence of right artificial knee joint; Z90.79 Acquired absence of other genital organ(s)
CPT/HCPCS: 36415; 80053; 81001; 85025; 99283

== ENCOUNTER 2020-05-23 05:27 | Emergency (ER) | payer MEDICARE, SELFPAY ==
[2020-05-23 05:27] VITALS: BP 149/86; PULSE 76; RESP 20; TEMP 37.2; O2SAT 95
--- NOTE | 2020-05-23 05:39 | ED.GENADULT ---
HPI - General Adult General Chief complaint: Wound/Laceration Stated complaint: lac left eye Time Seen by Provider: 05/23/20 05:30 History of Present Illness HPI narrative: Patient is a 79-year-old gentleman who presents to the emergency department chief complaint of forehead laceration. Patient is from a local memory care unit and was found wandering the hallways with a laceration on his forehead. They are unsure if he fell or unsure of what occurred. Patient has no complaint at this time and the patient believes that the paramedics were the ones who gave him the laceration Related Data Home Medications Medication Instructions Recorded Confirmed sertraline 25 mg tablet 25 mg PO DAILY 03/12/19 04/24/20 hydrochlorothiazide 12.5 mg PO DAILY 04/24/20 04/24/20 trazodone 100 mg PO .QHS 04/24/20 04/24/20 Allergies Allergy/AdvReac Type Severity Reaction Status Date / Time morphine Allergy Mild unknown Verified 04/24/20 15:17 Review of Systems Review of Systems: Narrative: A 10 system review of systems was completed on the patient and is negative except for what is stated in the HPI. Nursing and ancillary documentation was reviewed. [facility] Past Medical History Medical History Accelerated hypertension Alcohol abuse Previous history of such. Alzheimer's dementia without behavioral disturbance Benign prostatic hyperplasia Chest pain Chronic insomnia Coronary atherosclerosis Current use of watermaster anticoagulation Dementia Essential hypertension Lumbar spondylosis MDD (major depressive disorder), recurrent episode, moderate Obstructive sleep apnea Does not use CPAP. Parkinsonian syndrome Paroxysmal atrial fibrillation Restless legs syndrome Spinal stenosis Surgical History Surgical History History of bilateral cataract extraction History of cardiac pacemaker History of cataract surgery History of laparoscopic cholecystectomy History of lumbar fusion History of repair of rotator cuff Bilateral. History of total right knee replacement History of transurethral resection of prostate History of umbilical hernia repair Hx of cardiac catheterization Family History Family History Sibling Family history of tuberculosis Family history of hepatitis Patient's brother is Carcinoma of colon Patient's sister is Mother Cerebrovascular accident, Onset Age: 82 Family history of dementia Patient's mother is , Onset Age: 82 Father Family history of malignant neoplasm of brain, Onset Age: 62 Patient's father is , Onset Age: 62 Social History Social History Social History: Surrogate decision maker: Dora Gonzalez, . Code status: Full code. Smoking status: Never smoker Second hand tobacco smoke exposure: No Alcohol intake: former Substance use: never Substance use type: does not use Additional living arrangements comments: Resides in [place] with his . 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 Gender identity (if verbalized by the patient): Male Spiritual care concerns: No Exam Narrative: Exam Narrative: GENERAL: Well-appearing, well-nourished, and in no acute distress. HEAD: Normocephalic, there is a 3 cm laceration superior to the left eyebrow. EYES: PERRLA and EOMI. ENT: Nares clear, no rhinorrhea or epistaxis. Mucous membranes moist. NECK: Supple. CHEST: Clear to auscultation. No respiratory distress. HEART: Regular rate and rhythm. No murmur heard. Normal peripheral pulses. ABDOMEN: Soft, nontender, nondistended, normal active bowel sounds. EXTREMITIES: Normal range of motion. No edema. SKIN: Warm, dry, no rash. ABI
--- NOTE | 2020-05-23 05:40 | PC.NURSE ---
called [facility] to transport patient. ETA 20 minutes
[2020-05-23] MEDS: TETANUS,DIPHTHERIA,AC PERTUSSIS ADULT (0.5 ML) BOOSTRIX IM (05:48)
--- NOTE | 2020-05-23 05:58 | PC.NURSE ---
Pt confused and trying to get out of bed. Pt placed on bed alarm and sitter at bedside
[2020-05-23 06:19] VITALS: BP 144/79; PULSE 82; RESP 21; O2SAT 96
== END 2020-05-23 06:10 ==
PROVIDERS: Emergency Provider Emergency Medicine; PCP Family Medicine
DX: S01.81XA Laceration without foreign body of other part of head, initial encounter (principal); Z23 Encounter for immunization; I10 Essential (primary) hypertension; G30.9 Alzheimer's disease, unspecified; F02.80 Dementia in other diseases classified elsewhere, unspecified severity, without behavioral disturbance, psychotic disturbance, mood disturbance, and anxiety; N40.0 Benign prostatic hyperplasia without lower urinary tract symptoms; F51.04 Psychophysiologic insomnia; I25.10 Atherosclerotic heart disease of native coronary artery without angina pectoris; G47.33 Obstructive sleep apnea (adult) (pediatric); G20 Parkinson's disease; I48.0 Paroxysmal atrial fibrillation; F32.9 Major depressive disorder, single episode, unspecified; G25.81 Restless legs syndrome; Z98.42 Cataract extraction status, left eye; Z98.41 Cataract extraction status, right eye; Z95.0 Presence of cardiac pacemaker; Z98.1 Arthrodesis status; Z96.651 Presence of right artificial knee joint; Z90.79 Acquired absence of other genital organ(s); X58.XXXA Exposure to other specified factors, initial encounter
CPT/HCPCS: 12013; 90471; 90715; 99282

== ENCOUNTER 2020-07-29 23:44 | Emergency (ER) | payer MEDICARE, SELFPAY ==
--- NOTE | ~2020-07-29 | CT_ITS ---
EXAMINATION: CT brain wo con DATE: 07/30/2020 00:09 INDICATION: Altered mental status. TECHNIQUE: Computed tomography (CT) of the head was performed without intravenous contrast. The mA wa s adjusted according to patient size. Iterative reconstruction technique was employed. The dose-lengt h product was 605.33 mGy-cm. COMPARISON: Head CT 04/24/2020 FINDINGS: There is an old infarct in right cerebellum. There is an old infarct in left occipital lobe . There are scattered areas of low attenuation in the cerebral white matter. There is no intracranial hemorrhage, acute infarction, or abnormal intracranial mass lesion. The ventricles are normal in siz e. There are likely changes of ocular lens replacement surgeries. There is mucosal thickening in the paranasal sinuses. There is an old fracture deformity of superior rim of right orbit. There is chroni c dehiscence of the anterior wall of the frontal sinuses. IMPRESSION: 1. Old infarcts in the left occipital lobe and right cerebellum. 2. Stable moderate nonspecific cerebral white matter disease, which likely represents chronic small v essel ischemic disease. Reviewed, dictated and finalized at location A. IMPRESSION: 1. Old infarcts in the left occipital lobe and right cerebellum. 2. Stable moderate nonspecific cerebral white matter disease, which likely repr esents chronic small vessel ischemic disease.
--- NOTE | ~2020-07-29 | XR_ITS ---
EXAMINATION: XR chest 1V portable DATE: 07/30/2020 00:02 INDICATION: Weakness. Lethargy. TECHNIQUE: A single frontal view of the chest was obtained. COMPARISON: Chest single view 04/24/2020, chest CT 09/20/2018 FINDINGS: There are calcified pleural plaques bilaterally, which may be seen with asbestos exposure. There is no pneumonia, pleural effusion, or pneumothorax. Cardiomegaly is noted. There is a left ches t wall pacer with leads in the right atrium and right ventricle. IMPRESSION: 1. Bilateral calcified pleural plaques, which may be seen with asbestos exposure. 2. Cardiomegaly. Reviewed, dictated and finalized at location A. IMPRESSION: 1. Bilateral calcified pleural plaques, which may be seen with asbestos exposur e. 2. Cardiomegaly.
[2020-07-29 23:44] VITALS: BP 133/76; PULSE 71; PULSE 73; RESP 17; TEMP 37.6; O2SAT 98
--- NOTE | 2020-07-29 23:45 | PC.NURSE ---
This RN received call from Arlene Gonzalez ([facility] requesting update. This RN will return call with update when results come back and POC is established.
[2020-07-29 23:48] VITALS: TEMP 37.4
[2020-07-30] MEDS: SODIUM CHLORIDE 0.9% IV 1,000 ML 999 ML IV CONT (00:08)
[2020-07-30 00:28] LABS: Basophils Percent Auto 0.2 % (0.2-1.2); Eosinophils Absolute Auto 0.3 K/mm3 (0-0.3); Eosinophils Percent Auto 2.9 % (0-4.4); Hematocrit 36.9 % (42.0-52.0); Hemoglobin 12.1 g/dL (14.0-18.0); Immature Granulocyte Absolute 0.04 K/mm3 (0.00-0.031); Immature Granulocyte Percent A 0.3 % (0-0.5); Lymphocytes Absolute Auto 2.04 K/mm3 (0.9-3.2); Lymphocytes Percent Auto 17.6 % (18.3-44.2); Mean Corpuscular HGB Conc 32.8 g/dl (32-36); Mean Corpuscular Volume 91.3 fl (80-100); Mean Platelet Volume 10.4 fl (7.4-10.4); Monocytes Absolute Auto 1.3 K/mm3 (0.1-0.6); Monocytes Percent Auto 11.3 % (2.6-8.5); Neutrophils Absolute Auto 7.9 K/mm3 (1.3-6.7); Neutrophils Percent Auto 67.7 % (45.5-73.1); Platelet Count Result 321 k/mm3 (150-375); Red Blood Count 4.04 M/mm3 (4.6-6.20); Red Cell Distribution Width 14.5 % (11.5-14.5); White Blood Count 11.6 K/mm3 (4.5-10.0)
[2020-07-30 00:32] LABS: Add Urine Microscopic? YES; Appearance Urine Clear (Clear); Bilirubin Urine Negative (Negative); Blood Urine 1+ (Negative); Color Urine Yellow (Yellow); Glucose Urine UA Negative (Negative); Ketones Urine Negative (Negative); Leukocyte Esterase Ur Negative LEU/UL (Negative); Mucus Urine Rare /lpf; Nitrate Urine Negative (Negative); Protein Urine 1+ mg/dL (Negative); Specific Grav Ur 1.023 (1.001-1.035); WBC Urine 0-3 /hpf
[2020-07-30 00:40] LABS: Anion Gap 4 mmol/L (8-16); Blood Urea Nitrogen 21 mg/dL (9-20); Calcium 8.8 mg/dL (8.4-10.2); Carbon Dioxide 30 mmol/L (22-30); Chloride 104 mmol/L (98-107); Estimated Glomerular Filt Rate > 60; Glucose 95 mg/dL (75-110); Sodium 138 mmol/L (137-145)
[2020-07-30 01:03] VITALS: BP 156/83; PULSE 72; RESP 15; TEMP 37; O2SAT 99
--- NOTE | 2020-07-30 01:27 | ED.WEAKNESS ---
HPI - Weakness General Chief complaint: Weakness Stated complaint: unwitnessed fall yest, increase lethargy today Time Seen by Provider: 07/29/20 23:45 History of Present Illness HPI Narrative: Patient is a 79-year-old male who presents to the ER with reports of decreased mental status. Apparently patient had an unwitnessed fall yesterday at his residential and told them he hit his head. Today he is not up and ambulatory as much as he typically has so he was referred here. Patient has dementia at baseline is oriented x2. No other abnormalities reported by residential. No obvious evidence of trauma from fall yesterday. Related Data Home Medications Medication Instructions Recorded Confirmed sertraline 25 mg tablet 25 mg PO DAILY 03/12/19 04/24/20 hydrochlorothiazide 12.5 mg PO DAILY 04/24/20 04/24/20 trazodone 100 mg PO .QHS 04/24/20 04/24/20 Allergies Allergy/AdvReac Type Severity Reaction Status Date / Time morphine Allergy Mild unknown Verified 05/23/20 05:48 Review of Systems Review of Systems: ROS unobtainable: Yes unobtainable due to mental status PMFSH Past Medical History Medical History Accelerated hypertension Alcohol abuse Previous history of such. Alzheimer's dementia without behavioral disturbance Benign prostatic hyperplasia Chest pain Chronic insomnia Coronary atherosclerosis Current use of rn long term care anticoagulation Dementia Essential hypertension Lumbar spondylosis MDD (major depressive disorder), recurrent episode, moderate Obstructive sleep apnea Does not use CPAP. Parkinsonian syndrome Paroxysmal atrial fibrillation Restless legs syndrome Spinal stenosis Surgical History Surgical History History of bilateral cataract extraction History of cardiac pacemaker History of cataract surgery History of laparoscopic cholecystectomy History of lumbar fusion History of repair of rotator cuff Bilateral. History of total right knee replacement History of transurethral resection of prostate History of umbilical hernia repair Hx of cardiac catheterization Family History Family History Sibling Family history of tuberculosis Family history of hepatitis Patient's brother is Carcinoma of colon Patient's sister is Mother Cerebrovascular accident, Onset Age: 82 Family history of dementia Patient's mother is , Onset Age: 82 Father Family history of malignant neoplasm of brain, Onset Age: 62 Patient's father is , Onset Age: 62 Social History Social History Social History: Surrogate decision maker: Dora Gonzalez, . Code status: Full code. Smoking status: Never smoker Second hand tobacco smoke exposure: No Alcohol intake: former Substance use: never Substance use type: does not use Additional living arrangements comments: Resides in [place] with his . 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 Gender identity (if verbalized by the patient): Male Spiritual care concerns: No Exam Narrative: Exam Narrative: GENERAL: Well-appearing, well-nourished, and in no acute distress. HEAD: Normocephalic, atraumatic. EYES: PERRL and EOMI. ENT: Mucous membranes moist. Dried spit around the mouth. CHEST: Clear to auscultation. No respiratory distress. HEART: Regular rate and rhythm. N Normal peripheral pulses. ABDOMEN: Soft, nontender, nondistended. EXTREMITIES: Normal range of motion. No edema. SKIN: Warm, dry, no rash. NEURO: Alert and oriented x2. Course Course Emergency Course: Unremarkable evaluation. D/c. Vital Signs Vital signs: Vital Signs Temperature 99.6 F 07/29/20 23:44 Pulse Rate 73
--- NOTE | 2020-07-30 02:16 | PC.NURSE ---
this rn called nurse to nurse at this time, spoke to Nohemy at [facility].
[2020-07-30 02:41] VITALS: BP 131/77; PULSE 69; RESP 18; O2SAT 95
--- NOTE | 2020-07-30 02:46 | PC.NURSE ---
This RN called Arlene COMER) and gave update on pt.
[2020-07-30 05:10] VITALS: BP 120/88; PULSE 63; RESP 16; O2SAT 98
== END 2020-07-30 05:15 ==
PROVIDERS: Emergency Provider Emergency Medicine; PCP Family Medicine
DX: G30.9 Alzheimer's disease, unspecified (principal); F02.80 Dementia in other diseases classified elsewhere, unspecified severity, without behavioral disturbance, psychotic disturbance, mood disturbance, and anxiety; G20 Parkinson's disease; N40.0 Benign prostatic hyperplasia without lower urinary tract symptoms; I25.10 Atherosclerotic heart disease of native coronary artery without angina pectoris; I10 Essential (primary) hypertension; G47.33 Obstructive sleep apnea (adult) (pediatric); I48.0 Paroxysmal atrial fibrillation; G25.81 Restless legs syndrome; F32.9 Major depressive disorder, single episode, unspecified; Z98.42 Cataract extraction status, left eye; Z98.41 Cataract extraction status, right eye; Z95.0 Presence of cardiac pacemaker; Z98.1 Arthrodesis status; Z96.651 Presence of right artificial knee joint; R90.82 White matter disease, unspecified; I51.7 Cardiomegaly
CPT/HCPCS: 36415; 51701; 70450; 71045; 80048; 81001; 85025; 96360; 99284; J7030

== ENCOUNTER 2020-09-01 13:56 | Emergency (ER) | payer MEDICARE, SELFPAY ==
--- NOTE | ~2020-09-01 | CT_ITS ---
EXAMINATION: CT brain wo con EXAM DATE: 09/01/2020 15:48 INDICATION: Fall, head injury. Laceration above left eyebrow. TECHNIQUE: Spiral CT of the head was performed without contrast. Axial, coronal and sagittal images were reviewed. The dose-length product (DLP) for this examination was 681.00 mGy-cm. The exposure w as tailored according to patient size, and iterative reconstruction (ASIR) was used as additional dos e reduction technique. Comparison is made to prior examination from 07/30/2020. 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 Small old left occipital lobe cortical infarction. T here is no acute intraparenchymal hemorrhage. No evidence of intraparenchymal brain mass lesion. No evidence of acute infarction. Please note that initial head CT has limited sensitivity for small or acute infarctions. There is moderate periventricular and subcortical hypodensity, nonspecific but probably related to small vessel ischemic disease. There is moderate prominence of the sulci and v entricles related to cerebral atrophy. There is intracranial carotid arteriosclerosis. There are n o extra-axial collections. There is no mass effect or midline shift. Patient has had bilateral ocul ar lens surgery. Left frontal scalp swelling and laceration identified. The visualized sinuses and m astoid air cells are well aerated. IMPRESSION: 1. Left periorbital swelling, laceration. 2. Chronic age related findings. 3. 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 Reviewed, dictated and finalized at location A.
--- NOTE | ~2020-09-01 | CT_ITS ---
EXAMINATION: CT cervical spine wo con DATE: 09/01/2020 15:48 INDICATION: Head injury. TECHNIQUE: Computed tomography (CT) of the cervical spine was performed without intravenous contrast. Automated exposure control and iterative reconstruction technique were employed. The dose-length pro duct was 257.93 mGy-cm. COMPARISON: None FINDINGS: There is a 14 mm nodule in right thyroid lobe, likely not clinically significant. There is 7 degrees levocurvature of cervical spine. There is 2 mm retrolisthesis of C6 on C7. Vertebral body h eights are normal. There is mildly decreased disc height at C3-C4 and C5-C6 and moderately decreased disc height at C6-C7. The following disc levels are specifically discussed: C2-C3: There is no uncovertebral joint osteoarthritis. There is severe right and moderate left facet joint osteoarthritis. There is mild right neural foraminal stenosis. There is no central canal stenos is. C3-C4: There is mild right uncovertebral joint osteoarthritis. There is severe right and moderate lef t facet joint osteoarthritis. There is mild right neural foraminal stenosis. There is mild central ca nal stenosis. C4-C5: There is mild bilateral uncovertebral joint osteoarthritis. There is severe right and moderate left facet joint osteoarthritis. There is mild bilateral neural foraminal stenosis. There is mild ce ntral canal stenosis. C5-C6: There is moderate right and mild left uncovertebral joint osteoarthritis. There is severe righ t and mild left facet joint osteoarthritis. There is moderate right and mild left neural foraminal st enosis. There is mild central canal stenosis. C6-C7: There is severe bilateral uncovertebral joint osteoarthritis. There is mild bilateral facet adal int osteoarthritis. There is mild bilateral neural foraminal stenosis. There is mild central canal st enosis. C7-T1: There is no uncovertebral joint osteoarthritis. There is mild right and moderate left facet adal int osteoarthritis. There is no neural foraminal stenosis. There is no central canal stenosis. IMPRESSION: 1. No fracture. 2. Moderate cervical spondylosis. Reviewed, dictated and finalized at location A.
[2020-09-01 14:09] VITALS: BP 130/70; PULSE 61; RESP 18; TEMP 36.7; O2SAT 97
--- NOTE | 2020-09-01 14:54 | PC.NURSE ---
Pt moved to room one to be closer to nurses station
--- NOTE | 2020-09-01 15:00 | PC.NURSE ---
Pt cont. trying to get up from stretcher, unable to be redirected. Pt placed back on stretcher, placed on bed alarm. enrollment coordinator aware. Sitter placed at bedside for pt safety.
[2020-09-01 15:04] VITALS: BP 112/77; PULSE 64; RESP 17; O2SAT 97
[2020-09-01] MEDS: TETANUS,DIPHTHERIA,AC PERTUSSIS ADULT (0.5 ML) BOOSTRIX IM (15:09)
--- NOTE | 2020-09-01 15:48 | ED.FALL ---
HPI - Fall General Chief Complaint: Fall Stated Complaint: Fall Time Seen by Provider: 09/01/20 14:32 Source: patient and EMS Mode of arrival: EMS Limitations: dementia History of Present Illness HPI Narrative: Patient is a 79-year-old male complaining of left-sided head pain after he tripped and fell at the skilled nursing while walking. Patient has a history of Parkinson's and dementia. Patient denies any chest pain, shortness of breath, abdominal pain, back pain, pelvic pain or any extremity pain/injury. Patient is a very poor historian due to his dementia history. Related Data Home Medications Medication Instructions Recorded Confirmed sertraline 25 mg tablet 25 mg PO DAILY 03/12/19 04/24/20 trazodone 100 mg PO .QHS 04/24/20 04/24/20 aspirin 81 mg PO DAILY 09/01/20 atorvastatin 09/01/20 09/01/20 diltiazem HCl PO 09/01/20 divalproex PO 09/01/20 hydroxyzine HCl 09/01/20 memantine mg 09/01/20 olanzapine mg 09/01/20 rivaroxaban [Xarelto] mg 09/01/20 09/01/20 Allergies Allergy/AdvReac Type Severity Reaction Status Date / Time morphine Allergy Mild unknown Verified 09/01/20 15:29 Review of Systems Review of Systems: All systems reviewed & are unremarkable except as noted in HPI and below Constitutional: Constitutional: Denies body ache(s), Denies chills, Denies excessive sweating, Denies fatigue, Denies fever(s), Denies headache(s), Denies lethargy, Denies malaise, Denies weakness and Denies weight loss Eyes: Eyes: Denies blurry vision, Denies change in vision and Denies loss of vision ENT: Denies dizziness, Denies ear discharge, Denies headache(s), Denies lip swelling, Denies epistaxis, Denies nasal congestion, Denies neck pain, Denies throat swelling and Denies tongue swelling Cardiovascular: Cardiovascular: Denies chest pain, Denies chest pain at rest, Denies chest pain with activity, Denies diaphoresis, Denies rapid heart rate, Denies edema, Denies irregular heart rhythm, Denies lightheadedness, Denies palpitations, Denies dyspnea and Denies dyspnea on exertion Respiratory: Respiratory: Denies chest congestion, Denies cough, Denies hemoptysis, Denies dyspnea and Denies dyspnea on exertion Gastrointestinal: Gastrointestinal: Denies abdominal pain, Denies melena, Denies hematochezia, Denies diarrhea, Denies nausea, Denies vomiting and Denies hematemesis Musculoskeletal: Musculoskeletal: Denies abnormal gait, Denies deformity, Denies joint swelling, Denies limited range of motion, Denies neck pain and Denies numbness Neurologic: Denies Abnormal speech present, Denies dizziness, Denies headache(s), Denies focal weakness, Denies loss of vision, Denies numbness, Denies Other visual disturbances, Denies Sensory deficit (Neuro) and Denies weakness Allergic/Immunologic: Allergic/Immunologic: Denies lip swelling, Denies throat swelling and Denies tongue swelling PMFSH Past Medical History Medical History Accelerated hypertension Alcohol abuse Previous history of such. Alzheimer's dementia without behavioral disturbance Benign prostatic hyperplasia Chest pain Chronic insomnia Coronary atherosclerosis Current use of [employer] anticoagulation Dementia Essential hypertension Lumbar spondylosis MDD (major depressive disorder), recurrent episode, moderate Obstructive sleep apnea Does not use CPAP. Parkinsonian syndrome Paroxysmal atrial fibrillation Restless legs syndrome Spinal stenosis Surgical History Surgical History History of bilateral cataract extraction History of cardiac pacemaker History of cataract surgery History of laparoscopic cholecystectomy History of lumbar fusion History of repair of rotator cuff Bilateral. History of total right knee replacement History of transurethral resection of prostate History of umbilical hernia repair Hx of cardiac catheterization Family History Family Hi
[2020-09-01 17:27] VITALS: BP 140/63; PULSE 64; RESP 18; O2SAT 98
--- NOTE | 2020-09-01 18:02 | PC.NURSE ---
called and ordered tray for patient
--- NOTE | 2020-09-01 18:04 | PC.NURSE ---
[facility] declined return to custodial [facility] accepted return to custodial ETA 2200 Trip #[id number]
--- NOTE | 2020-09-01 20:26 | PC.NURSE ---
called [facility] to request transport. declined.
--- NOTE | 2020-09-01 20:58 | PC.NURSE ---
called [facility] to request transport. declined - swamped
[2020-09-01 21:25] VITALS: PULSE 67; RESP 22; O2SAT 97
--- NOTE | 2020-09-01 22:15 | PC.NURSE ---
called [facility] for update ETA . ETA midnight
[2020-09-01] MEDS: HYDROcodone/acetaminophen (*CRX) 5-325 MG TABLET 1 TAB PO (22:36)
[2020-09-01] MEDS: rOPINIRole HCL 1 MG TABLET 2 MG PO (22:59)
[2020-09-01 23:47] VITALS: BP 158/87; PULSE 68; RESP 16; O2SAT 96
--- NOTE | 2020-09-02 00:03 | PC.NURSE ---
called [facility] for ETA update. ETA [id number]. called [facility]. Accepted called [facility] and cancelled.
--- NOTE | 2020-09-02 00:40 | PC.NURSE ---
[facility] here
[2020-09-02 00:45] VITALS: BP 153/74; PULSE 62; RESP 18; O2SAT 99
== END 2020-09-02 00:49 ==
PROVIDERS: Emergency Provider Emergency Medicine; PCP Family Medicine
DX: S01.112A Laceration without foreign body of left eyelid and periocular area, initial encounter (principal); Z23 Encounter for immunization; I48.0 Paroxysmal atrial fibrillation; I10 Essential (primary) hypertension; G20 Parkinson's disease; G30.9 Alzheimer's disease, unspecified; F02.80 Dementia in other diseases classified elsewhere, unspecified severity, without behavioral disturbance, psychotic disturbance, mood disturbance, and anxiety; N40.0 Benign prostatic hyperplasia without lower urinary tract symptoms; I25.10 Atherosclerotic heart disease of native coronary artery without angina pectoris; G47.33 Obstructive sleep apnea (adult) (pediatric); G25.81 Restless legs syndrome; Z79.01 Long term (current) use of anticoagulants; Z98.42 Cataract extraction status, left eye; Z98.41 Cataract extraction status, right eye; Z98.1 Arthrodesis status; Z96.651 Presence of right artificial knee joint; Z95.0 Presence of cardiac pacemaker; W01.0XXA Fall on same level from slipping, tripping and stumbling without subsequent striking against object, initial encounter
CPT/HCPCS: 12013; 70450; 72125; 90471; 90715; 99284; A9270

== ENCOUNTER 2020-09-02 11:39 | Emergency (ER) | payer MEDICARE, SELFPAY ==
--- NOTE | ~2020-09-02 | CT_ITS ---
EXAMINATION: CT brain wo con INDICATION: Head injury COMPARISON: 09/01/2020jj TECHNIQUE: Standard unenhanced head CT. The dose-length product (DLP) was 756.67 mGy-cm. The mA was a djusted according to patient size. Iterative reconstruction technique was employed. FINDINGS: There is periorbital soft tissue swelling. There is no acute intraparenchymal hemorrhage. N o evidence of mass lesion. No evidence of acute infarction. There are old left occipital and right ce rebellar infarcts. There is moderate periventricular and subcortical hypodensity probably related to small vessel ischemic disease. There is moderate prominence of the sulci and ventricles related to ce rebral atrophy. Intracranial calcified cerebral atherosclerosis is noted. There are no extra-axial co llections. There is no mass effect or midline shift. Changes in the globes are likely from ocular jolynn s surgery. The visualized sinuses and mastoid air cells are well aerated. IMPRESSION: 1. No acute intracranial abnormality. 2. Age related findings. Reviewed, dictated and finalized at location A.
[2020-09-02 11:19] VITALS: BP 123/70; PULSE 82; RESP 16; TEMP 36.6; O2SAT 97
[2020-09-02 11:37] VITALS: BP 128/65; PULSE 61; RESP 15; O2SAT 97
[2020-09-02 12:04] LABS: Add Urine Microscopic? YES; Appearance Urine Clear (Clear); Bilirubin Urine 1+ (Negative); Blood Urine Negative (Negative); Color Urine Amber (Yellow); Glucose Urine UA Negative (Negative); Ketones Urine Negative (Negative); Leukocyte Esterase Ur Negative LEU/UL (Negative); Mucus Urine Few /lpf; Nitrate Urine Negative (Negative); Protein Urine 1+ mg/dL (Negative); RBC Urine 0-2 /hpf (0-2); Specific Grav Ur 1.027 (1.001-1.035); WBC Urine 0-3 /hpf
[2020-09-02 12:31] LABS: Basophils Percent Auto 0.1 % (0.2-1.2); Eosinophils Absolute Auto 0.4 K/mm3 (0-0.3); Eosinophils Percent Auto 3.8 % (0-4.4); Hematocrit 37.8 % (42.0-52.0); Hemoglobin 12.3 g/dL (14.0-18.0); Immature Granulocyte Absolute 0.03 K/mm3 (0.00-0.031); Immature Granulocyte Percent A 0.3 % (0-0.5); Lymphocytes Absolute Auto 1.52 K/mm3 (0.9-3.2); Lymphocytes Percent Auto 15.1 % (18.3-44.2); Mean Corpuscular HGB Conc 32.5 g/dl (32-36); Mean Corpuscular Hemoglobin 30.2 pg (26-34); Mean Corpuscular Volume 92.9 fl (80-100); Mean Platelet Volume 9.7 fl (7.4-10.4); Monocytes Absolute Auto 1.1 K/mm3 (0.1-0.6); Monocytes Percent Auto 10.5 % (2.6-8.5); Neutrophils Absolute Auto 7.1 K/mm3 (1.3-6.7); Neutrophils Percent Auto 70.2 % (45.5-73.1); Platelet Count Result 396 k/mm3 (150-375); Red Blood Count 4.07 M/mm3 (4.6-6.20); Red Cell Distribution Width 14.9 % (11.5-14.5); White Blood Count 10.1 K/mm3 (4.5-10.0)
[2020-09-02 12:42] LABS: Anion Gap 7 mmol/L (8-16); Blood Urea Nitrogen 16 mg/dL (9-20); Calcium 8.9 mg/dL (8.4-10.2); Carbon Dioxide 28 mmol/L (22-30); Chloride 106 mmol/L (98-107); Estimated CRCL calculation 72 ml/min; Estimated Glomerular Filt Rate > 60; Glucose 98 mg/dL (75-110); Sodium 141 mmol/L (137-145)
[2020-09-02 13:05] VITALS: BP 140/86; PULSE 72; RESP 18; O2SAT 97
--- NOTE | 2020-09-02 13:19 | ED.GENADULT ---
HPI - General Adult General Chief complaint: Fall Stated complaint: fall Source: EMS, RN notes reviewed and old records reviewed Mode of arrival: EMS Limitations: dementia History of Present Illness HPI narrative: Patient is a 79-year-old male who presents from prison after falling out of his bed today patient was seen last night after having sustained a fall laceration repair was sent back patient again has fallen out of bed patient is a limited historian due to dementia on arrival is alert and oriented to self has no complaints. No obvious injuries or wounds Related Data Home Medications Medication Instructions Recorded Confirmed sertraline 25 mg tablet 50 mg PO DAILY 03/12/19 04/24/20 trazodone 50 mg PO .QHS 04/24/20 04/24/20 aspirin 81 mg PO DAILY 09/01/20 atorvastatin 09/01/20 09/01/20 diltiazem HCl PO 09/01/20 divalproex PO BID 09/01/20 hydroxyzine HCl 09/01/20 memantine mg 09/01/20 olanzapine mg 09/01/20 rivaroxaban [Xarelto] mg 09/01/20 09/01/20 acetaminophen 500 mg PO QID 09/02/20 hydroxyzine HCl 25 mg PO BID 09/02/20 magnesium hydroxide [Milk of 400 mg PO DAILY PRN 09/02/20 Magnesia] melatonin 3 mg PO HS 09/02/20 mupirocin 1 applic TOPICAL BID 09/02/20 Allergies Allergy/AdvReac Type Severity Reaction Status Date / Time morphine Allergy Mild unknown Verified 09/02/20 11:39 Review of Systems Review of Systems: ROS unobtainable: Yes unobtainable due to medical condition [facility] Past Medical History Medical History Accelerated hypertension Alcohol abuse Previous history of such. Alzheimer's dementia without behavioral disturbance Benign prostatic hyperplasia Chest pain Chronic insomnia Coronary atherosclerosis Current use of skilled nursing anticoagulation Dementia Essential hypertension Lumbar spondylosis MDD (major depressive disorder), recurrent episode, moderate Obstructive sleep apnea Does not use CPAP. Parkinsonian syndrome Paroxysmal atrial fibrillation Restless legs syndrome Spinal stenosis Surgical History Surgical History History of bilateral cataract extraction History of cardiac pacemaker History of cataract surgery History of laparoscopic cholecystectomy History of lumbar fusion History of repair of rotator cuff Bilateral. History of total right knee replacement History of transurethral resection of prostate History of umbilical hernia repair Hx of cardiac catheterization Family History Family History Sibling Family history of tuberculosis Family history of hepatitis Patient's brother is Carcinoma of colon Patient's sister is Mother Cerebrovascular accident, Onset Age: 82 Family history of dementia Patient's mother is , Onset Age: 82 Father Family history of malignant neoplasm of brain, Onset Age: 62 Patient's father is , Onset Age: 62 Social History Social History Social History: Surrogate decision maker: Dora Gonzalez, . Code status: Full code. Smoking status: Never smoker Second hand tobacco smoke exposure: No Alcohol intake: former Substance use: never Substance use type: does not use Additional living arrangements comments: Resides in [place] with his . 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 Gender identity (if verbalized by the patient): Male Spiritual care concerns: No Exam Narrative: Exam Narrative: GENERAL: Well-appearing, well-nourished, and in no acute distress. HEAD: Normocephalic, repaired laceration above the left brow EYES: PERRLA and EOMI. ENT: Nares clear, no rhinorrhea or epistaxis. Mucous membranes moist. NECK: Supple. No adenopathy or masses. CHEST:
--- NOTE | 2020-09-02 13:45 | PC.NURSE ---
Patient transferred to [facility] at this time via [facility].
== END 2020-09-02 13:46 ==
PROVIDERS: Emergency Medicine Emergency Medical Services; Emergency Provider Emergency Medicine; PCP Family Medicine
DX: Z04.3 Encounter for examination and observation following other accident (principal); I10 Essential (primary) hypertension; G30.9 Alzheimer's disease, unspecified; F02.80 Dementia in other diseases classified elsewhere, unspecified severity, without behavioral disturbance, psychotic disturbance, mood disturbance, and anxiety; I48.0 Paroxysmal atrial fibrillation; I25.10 Atherosclerotic heart disease of native coronary artery without angina pectoris; Z91.81 History of falling; Z79.01 Long term (current) use of anticoagulants; Z79.82 Long term (current) use of aspirin; W06.XXXA Fall from bed, initial encounter; Y92.122 Bedroom in nursing home as the place of occurrence of the external cause
CPT/HCPCS: 36415; 51701; 70450; 80048; 81001; 85025; 99284